=== PATIENT | female | born 1985 | race Caucasian/White ===

== ENCOUNTER → 2017-10-06 | Outpatient (CLI) | payer BC ==
--- NOTE | 2017-10-06 16:52 | RADIOLOGY REPORT (SQ) ---
EXAM DESCRIPTION: CT SINUSES FOR ENT COMPLETED DATE/TIME: 10/06/2017 3:20 pm REASON FOR STUDY: J01.81OTHER ACUTE RECURRENT SINUSITIS J01.81 OTHER ACUTE RECURRENT SINUSITIS COMPARISON: None. TECHNIQUE: Noncontrast scanning through the paranasal sinuses using bone algorithm. Reconstructed MPR images reviewed. All images stored on PACS. Images acquired for image guided surgery. All CT scanners at this facility use dose modulation, iterative reconstruction, and/or weight based d osing when appropriate to reduce radiation dose to as low as reasonably achievable (ALARA). [facility]: Dose Right [facility]: CareDose [facility]: Dose Right [facility]: Teradose 4D [facility]: Smart REPP RADIATION DOSE: mGy. FINDINGS: NASAL PASSAGES: Clear. No polyps or masses. OSTEOMEATAL UNITS AND NASOFRONTAL DUCTS: Patent. No agger nasi or Nisha cells. MAXILLARY SINUSES: Mucous membrane thickening in the floor of the right maxillary sinus. No fluid. Left maxillary sinus clear. Maxillary sinus outlets are patent. ETHMOID SINUSES: Well-pneumatized and clear. SPHENOID SINUSES: Well-pneumatized and clear. No sphenoethmoid air cells or pneumatized pterygoid rec ess. No pneumatized dorsal sella. FRONTAL SINUSES: Well-pneumatized and clear. MASTOID AIR CELLS: Clear. ORBITS: Normal and symmetrical. NASAL SEPTUM: Deviated to the right. Small right side nasal septal spur. TEMPOROMANDIBULAR JOINTS: Normal. TURBINATES: Bilateral miah bullosa in the middle turbinates with a large pneumatized air cell in t he left middle turbinate. MUCOPERIOSTEAL THICKENING: No. MUCOCELE: No. OTHER: No other significant findings. IMPRESSION: 1. MUCOUS MEMBRANE THICKENING IN THE RIGHT MAXILLARY SINUS. NO FLUID. PATENT OSTIOMEATAL UNIT. REM AINDER OF THE PARANASAL SINUSES ARE CLEAR. 2. MILD DEVIATION OF THE NASAL SEPTUM TO THE RIGHT WITH A SMALL RIGHT-SIDED NASAL SEPTAL SPUR. 3. MIAH BULLOSA IN THE MIDDLE TURBINATES, LEFT GREATER THAN RIGHT. TECHNICAL DOCUMENTATION: JOB ID: [id number] Quality ID # [id number]: Final reports with documentation of one or more dose reduction techniques (e.g., Au tomated exposure control, adjustment of the mA and/or kV according to patient size, use of iterative reconstruction technique) 2010 [employer]- All Rights Reserved Reading location - IP/workstation name: [email or web address]
== END ==
LOC: RAD 15:41
PROVIDERS: ATTEND Otolaryngology
DX: J01.81 Other acute recurrent sinusitis (principal); J34.2 Deviated nasal septum
CPT/HCPCS: 70486

== ENCOUNTER 2017-11-07 06:38 | Day surgery (SDC) | payer BC ==
[~2017-11-07 06:38] MED LIST: LACTATED RINGERS 1000 ML IV PRN; LIDOCAINE 0.5% INJ-PF (5 MG/ML) 50 ML SDV SUBCUT PRN
[2017-11-07] MEDS ORDERED: OXYMETAZOLINE HCL 0.05% NASAL SPRAY 15 ML BOTTLE ONE (06:46)
[2017-11-07] MEDS ORDERED: BUPIVACAINE HCL 0.5%/EPI 1:200000 INJ 1.8 ML CARTRIDGE ONE (06:46)
[2017-11-07] MEDS ORDERED: MINERAL OIL (STERILE) 10 ML VIAL ONE (06:46)
[2017-11-07] MEDS ORDERED: BUPIVACAINE HCL 0.5%-EPI 1:200000 INJ/PF 30 ML VIAL ONE (06:46)
[2017-11-07] MEDS ORDERED: METOCLOPRAMIDE HCL INJ/PF 10 MG/2 ML SDV ONE (06:52)
[2017-11-07] MEDS ORDERED: FENTANYL CITRATE INJ/PF 100 MCG/2 ML AMPUL ONE ×4 (06:52→12:26)
[2017-11-07] MEDS ORDERED: MIDAZOLAM 2 MG/2 ML INJ ONE (06:52)
[2017-11-07] MEDS ORDERED: DEXMEDETOMIDINE INJ 80 MCG/20 ML VIAL IV ONE (06:53)
[2017-11-07] MEDS ORDERED: DEXAMETHASONE SOD PHOS INJ 10 MG/1 ML VIAL ONE (06:53)
[2017-11-07] MEDS ORDERED: PROPOFOL INJ 200 MG/20 ML VIAL IV ONE (06:53)
[2017-11-07] MEDS ORDERED: LIDOCAINE 2% INJ-PF (20 MG/ML) 10 ML AMPUL ONE (06:53)
[2017-11-07] MEDS ORDERED: GLYCOPYRROLATE INJ 0.4 MG/2 ML VIAL ONE (06:54)
[2017-11-07] MEDS ORDERED: SUCCINYLCHOLINE CHLORIDE INJ 200 MG/10 ML VIAL ONE (06:54)
[2017-11-07] MEDS ORDERED: FAMOTIDINE INJ/PF 20 MG/2 ML SDV IV ONE (06:54)
[2017-11-07] MEDS ORDERED: PROMETHAZINE HCL INJ 25 MG/1 ML VIAL ONE (06:54)
[2017-11-07] MEDS ORDERED: CEFAZOLIN 2 GM/D5W RTU 2 GM/50 ML RTUPB IV ONE (07:06)
[2017-11-07] MEDS ORDERED: ONDANSETRON HCL INJ/PF 4 MG/2 ML SDV ONE (07:24)
[2017-11-07] MEDS ORDERED: SCOPOLAMINE HYDROBROMIDE 1.5 MG PATCH.TD72 TD PRN (07:39)
[2017-11-07] MEDS ORDERED: TOBRAMYCIN SULFATE/DEXAMETH OPH OINTMENT 3.5 GM ONE (07:43)
[2017-11-07] MEDS ORDERED: BALANCED SALT IRRIG SOLN COMB2 15 ML BOTTLE ONE (07:43)
[2017-11-07] MEDS ORDERED: OXYCODONE-ACETAMINOPHEN 5-325 MG TABLET ONE (15:19)
--- NOTE | 2017-11-08 21:55 | SURGICARE OPERATIVE REPORT E ---
[facility] Operative Report NAME: DILEEP LEYVA AGE: 32Y DATE OF SURGERY: 11/07/2017 ROOM: PREOPERATIVE DIAGNOSES: 1. ACUTE RECURRENT SINUSITIS. 2. NASAL SEPTAL DEVIATION, ACQUIRED. 3. NASAL DEFORMITIES, ACQUIRED. 4. BILATERAL INFERIOR TURBINATE HYPERTROPHY. 5. BILATERAL ZANE BULLOSA. 6. CHRONIC NASAL DYSPNEA. 7. HISTORY OF NASAL TRAUMA. POSTOPERATIVE DIAGNOSES: 1. ACUTE RECURRENT SINUSITIS. 2. NASAL SEPTAL DEVIATION, ACQUIRED. 3. NASAL DEFORMITIES, ACQUIRED. 4. BILATERAL INFERIOR TURBINATE HYPERTROPHY. 5. BILATERAL ZANE BULLOSA. 6. CHRONIC NASAL DYSPNEA. 7. HISTORY OF NASAL TRAUMA. OPERATION PERFORMED: 1. Functional endoscopic sinus surgery with bilateral maxillary antrostomies, bilateral rigid transnasal surgical endoscopies. 2. Open/external septorhinoplasty addressing the bony nasal pyramid and the upper and lower cartilages with cartilage grafting. 3. Bilateral zane bullosa reductions. 4. Bilateral inferior turbinate reductions using a submucous resection technique. SURGEON: WESTLEY VALVERDE D.O. ANESTHETIC: General endotracheal tube. ANESTHESIA STAFF: Brenda Yeboah CRNA ESTIMATED BLOOD LOSS: 100 mL. IV FLUIDS: 2200 mL. URINE OUTPUT: 750 mL. COMPLICATIONS: None. DRAINS: None. SPONGE COUNT: Verified. MATERIALS FORWARDED SPECIMEN: None. FINDINGS: 1. Right nasal septal deviation involving bone and cartilage along with a maxillary crest spur/septal spur. 2. Significant dorsal nasal hump involving bone and cartilage along with dorsal deformities. 3. Cephalically sweeping lower lateral cartilages which were also weak in their overall integrity. 4. Zane bullosa, left greater than right. 5. There were no sinonasal polyps or polypoid mucosal changes or sinus discharge noted. INDICATIONS: This is a 32-year-old white female who was seen and evaluated t the [place] otolaryngology office. The patient had been referred for and she complained of a history of acute recurrent sinusitis infections occurring each year, requiring antibiotics which has gone on over the years. The patient also complained of a history of repeated nasal trauma beginning in early youth with resulting nasal deformities and chronic nasal dyspnea. The patient notes that her nasal airflow/dysfunction has progressively become more difficult over the years. The patient underwent CT sinus imaging and clinic nasal endoscopic evaluation. After extensive discussion with the patient, recommendation and plan was made to proceed with functional endoscopic sinus surgery, open/external septorhinoplasty, zane bullosa reductions, and bilateral inferior turbinate reductions. The procedures and all of their risks and complications were all discussed in detail with the patient. She voiced an understanding of the described surgical plan, agreed to proceed, and consent was obtained. PROCEDURE: The patient was taken to the main operating room and placed on the operating room table in the supine position. Appropriate monitors were placed. Using mask and IV access, general anesthesia was induced. The patient was next transorally intubated without difficulty. The patient underwent a nasal examination with injection of local anesthetic with epinephrine to establish a nasal block. At this point, the patient had 2 Afrin-soaked neuro patties placed per side. The patient was then prepped and draped in the usual fashion for nasal surgery. The Afrin-soaked neuro patties were removed and the patient underwent a hemitransfixion incision with elevation of the mucoperichondrial and mucoperiosteal flaps. The bony cartilaginous junction was identified and divided with the most deviated portions of septal bone and cartilage removed. There was a greater than 1.5 x 1.5 cm cartilaginous L-strut that was preserved. At this point, the turbinate bipolar wand was used to make 2 passes in each inferior turbinate followed by use of the [place] elevator to outfracture each inferior turbinate. The anterior portion was entered with a pair of Zbigniew scissors followed by elevation of the mucosa in a submucosal plane using a [place] elevator. Next, the turbinate microdebrider system at a setting of 1500 rpm was used to perform submucous resection on each side. The redundant/excessive mucosa was trimmed and the tissue margins were reapproximated with Chromic suture. At this point, the functional endoscopic sinus surgery was addressed with use of bilateral transnasal rigid surgical endoscopy. With use of sinus instrumentation and the microdebrider system at a setting of 3000 rpm, the zane bullosa were reduced, left greater than right. At this point, the maxillary antrostomies were performed without difficulty. Findings are as noted above. Prior to addressing the zane bullosa and performing maxillary antrostomies, there was injection of local anesthetic with epinephrine in the area of the middle turbinates and lateral nasal wall. At this point, the rhinoplasty portion of the case was addressed in the following manner. There was an inverted V incision performed followed by bilateral marginal incisions with elevation of the skin soft tissue envelope in a subperichondrial/subperiosteal plane. Once complete, a Martinez osteotome and an 11 blade scalpel were used to remove the bony cartilaginous and dorsal irregularities. At this point, dorsal rasp work was performed. The upper lateral cartilages had been previously released from the nasal septum. Excess caudal septal margin cartilage was also trimmed, removing approximately 2 mm. A rongeur was used to remove excessive bony fullness at the right nasal vestibule adjacent the anterior nasal spine. The lateral aspect of the lower lateral cartilages were dissected free from the surrounding tissue and then fashioned with extended alar simón graft and these were next repositioned in precise pockets in a more caudal fashion, as they were previously cephalically sweeping. Next, a right rn bone marrow transplant graft was placed and secured in position with 6-0 Prolene suture. The upper lateral cartilages were next repositioned with 6-0 Prolene suture, securing them in the midline. At this point, morselized cartilage was placed over the nasal dorsum. The dome regions were reapproximated with 6-0 Prolene suture. The medial crura were secured to the caudal septal margin with 5-0 Prolene suture. The skin soft tissue envelope was next returned. A right lateral osteotomy was also performed after a subperiosteal tunnel was created. The right lateral nasal sidewall was positioned into the midline. The inverted V incision was next reapproximated with chromic suture followed by skin margin reapproximation with 6-0 Prolene suture. At this point, the lower lateral cartilages with grafts were stabilized with [id number] 5-0 Prolene suture with Telfa cotton bolsters overlying the internal and external nasal tissue. Once complete, all remaining incisions were reapproximated with chromic suture. The nose was then thoroughly irrigated and suctioned with adequate hemostasis being noted. Next, 1 Merocel nasal pack was placed per side and these were secured at the caudal aspect with 4-0 Prolene suture. At this point, the patient's nose was cleaned and dried, followed by placement of Mastisol, Steri-Strips, and an aluminum pressure splint. At this point, the patient was returned to the anesthesia staff and was allowed to emerge from general anesthesia. The patient was extubated in the main operating room and was then transported to the post anesthesia recovery unit in stable condition. There were no complications. DICTATING PHYSICIAN: WESTLEY VALVERDE D.O. [id number] PHY#: [id number] ID: [id number] JOB#: [id number] ACCT: [id number] cc:WESTLEY VALVERDE D.O. >
== END 2017-11-07 16:24 | disposition home or self-care (01) ==
LOC: SC 06:38
PROVIDERS: ATTEND Otolaryngology
DX: J34.2 Deviated nasal septum (principal); J34.3 Hypertrophy of nasal turbinates; J34.89 Other specified disorders of nose and nasal sinuses; G89.29 Other chronic pain; R06.09 Other forms of dyspnea; J30.9 Allergic rhinitis, unspecified; H69.83 Other specified disorders of Eustachian tube, bilateral; J01.81 Other acute recurrent sinusitis; M95.0 Acquired deformity of nose; E07.9 Disorder of thyroid, unspecified; Z88.2 Allergy status to sulfonamides; Z79.899 Other long term (current) drug therapy; Z87.891 Personal history of nicotine dependence
CPT/HCPCS: 30420; 30140; 31240; 31256; J2250; J3490 ×7; J3010; J2765; J2550; J0330; J2405; J2704; S0028; J1100; J0690; 160

== ENCOUNTER 2017-12-18 23:49 | Emergency (ER) | payer BC ==
--- NOTE | 2017-12-19 00:44 | ER Document Report ---
ED Medical Screen (RME) - General Chief Complaint: Chest Congestion Stated Complaint: CONGESTION Time Seen by Provider: 12/19/17 00:40 Mode of Arrival: Ambulatory Information source: Patient Notes: 32-year-old female presents to ED for complaint of cough congestion shortness of breath. She states she went to the clinic yesterday they gave her albuterol told to get Mucinex. They told her she had any fever she needs to be taken it seriously. She states tonight she was shaking so hard that she had to get up get a blanket. She states her friend came over to check her out and her heart rate was 118 and she has never that high. States she also has a history of kidney stones and she has had flank pain and frequent urination. She states she just had sinus surgery 6 weeks ago. And she had a knee surgery in the distant past for dislocated knee and it is still dislocates easily. 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 She smokes half pack a day and drinks socially. Patient is alert and oriented respirations regular unlabored speaks in full sentences walks with a even steady gait. I have greeted and performed a rapid initial assessment of this patient. A comprehensive ED assessment and evaluation of the patient, analysis of test results and completion of medical decision making process will be conducted by an additional ED providers. TRAVEL OUTSIDE OF THE [place] IN LAST 30 DAYS: No - Related Data Allergies/Adverse Reactions: Sulfa (Sulfonamide Antibiotics) Allergy (Verified 11/06/17 09:27) Past Medical History - Past Medical History Cardiac Medical History: Denies: Hx Heart Attack, Hx Hypertension Pulmonary Medical History: Denies: Hx Asthma Neurological Medical History: Denies: Hx Cerebrovascular Accident, Hx Seizures GI Medical History: Reports: Hx Gastroesophageal Reflux Disease, Hx Hiatal Hernia. Denies: Hx Hepatitis, Hx Ulcer Infectious Medical History: Denies: Hx Hepatitis Past Surgical History: Denies: Hx Mastectomy, Hx Open Heart Surgery, Hx Pacemaker - Immunizations Hx Diphtheria, Pertussis, Tetanus Vaccination: Yes Doctor's Discharge - Discharge Referrals: LOCALMD,NO [Primary Care Provider] - Follow up as needed
[2017-12-19 01:25] LABS: APPEARANCE,URINE CLEAR; BILIRUBIN,URINE NEGATIVE (NEGATIVE); COLOR,URINE YELLOW; GLUCOSE, URINE NEGATIVE (NEGATIVE); KETONES,URINE NEGATIVE (NEGATIVE); LEUKOCYTE ESTERASE,URINE NEGATIVE (NEGATIVE); NITRITE,URINE NEGATIVE (NEGATIVE); PROTEIN,URINE NEGATIVE (NEGATIVE); URINE SPECIFIC GRAVITY 1.019; UROBILINOGEN,URINE NEGATIVE mg/dL (<2.0)
== END 2017-12-19 01:05 | disposition left against medical advice (07) ==
LOC: ER 23:49
DX: R09.89 Other specified symptoms and signs involving the circulatory and respiratory systems (principal); R06.02 Shortness of breath; R35.0 Frequency of micturition; Z88.2 Allergy status to sulfonamides; Z87.442 Personal history of urinary calculi
CPT/HCPCS: 81001; 81025; 99281

== ENCOUNTER 2018-01-21 11:14 | Emergency (ER) | payer BC ==
[2018-01-21] MEDS ORDERED: FAMOTIDINE INJ/PF 20 MG/2 ML SDV IV ONE (11:44)
--- NOTE | 2018-01-21 11:44 | ER Document Report ---
ED Medical Screen (RME) - General Chief Complaint: Black/Tarry Stools Stated Complaint: ABDOMINAL PAIN, BLOOD IN STOOL Time Seen by Provider: 01/21/18 11:38 Mode of Arrival: Ambulatory Information source: Patient Notes: This is a 32-year-old female with a history of hiatal hernia, chronic left knee pain (takes NSAIDs often) who is been under a lot of stress lately and now presents with stomach cramping and black stool. Patient does report drinking 2 large glasses of wine last night. She said she had symptoms of reflux during the night and had black stool this morning. TRAVEL OUTSIDE OF THE [place] IN LAST 30 DAYS: No - Related Data Allergies/Adverse Reactions: Sulfa (Sulfonamide Antibiotics) Allergy (Verified 01/21/18 11:15) Past Medical History - Social History Frequency of alcohol use: Occasional - Past Medical History Cardiac Medical History: Denies: Hx Heart Attack, Hx Hypertension Pulmonary Medical History: Denies: Hx Asthma Neurological Medical History: Denies: Hx Cerebrovascular Accident, Hx Seizures Renal/ Medical History: Denies: Hx Peritoneal Dialysis GI Medical History: Reports: Hx Gastroesophageal Reflux Disease, Hx Hiatal Hernia. Denies: Hx Hepatitis, Hx Ulcer Infectious Medical History: Denies: Hx Hepatitis Past Surgical History: Reports: Hx Nose Surgery, Hx Orthopedic Surgery - Lt knee. Denies: Hx Mastectomy, Hx Open Heart Surgery, Hx Pacemaker - Immunizations Hx Diphtheria, Pertussis, Tetanus Vaccination: Yes Physical Exam - Vital signs Vitals: Temp Pulse Resp BP Pulse Ox 97.7 F 82 16 96/70 L 100 01/21/18 11:18 01/21/18 11:18 01/21/18 11:18 01/21/18 11:18 01/21/18 11:18 Course - Vital Signs Vital signs: Temp Pulse Resp BP Pulse Ox 97.7 F 82 16 96/70 L 100 01/21/18 11:18 01/21/18 11:18 01/21/18 11:18 01/21/18 11:18 01/21/18 11:18
[2018-01-21 12:13] LABS: ABSOLUTE EOSINOPHILS # (AUTO) 0.2 10^3/uL (0.0-0.6); ABSOLUTE LYMPHOCYTES (AUTO) 1.4 10^3/uL (0.5-4.7); ABSOLUTE MONOCYTES (AUTO) 0.4 10^3/uL (0.1-1.4); BASOPHILS % (AUTO) 0.4 % (0-2); EOSINOPHILS % (AUTO) 2.4 % (0-6); HEMATOCRIT 39.3 % (36.0-47.0); HEMOGLOBIN 13.9 g/dL (12.0-15.5); LYMPHOCYTES % (AUTO) 13.5 % (13-45); MEAN CORPUSCULAR HGB CONC 35.4 g/dL (32.0-36.0); MEAN CORPUSCULAR VOLUME 90 fl (80-97); MONOCYTES % (AUTO) 4.2 % (3-13); PLATELET COUNT 297 10^3/uL (150-450); RED BLOOD COUNT 4.35 10^6/uL (3.72-5.28); RED CELL DISTRIBUTION WIDTH 12.9 % (11.5-14.0); SEGMENTED NEUTROPHILS % (AUTO) 79.5 % (42-78); TOTAL CELLS COUNTED % (AUTO) 100 %; WHITE BLOOD COUNT 10.1 10^3/uL (4.0-10.5)
[2018-01-21 12:35] LABS: ALANINE AMINOTRANSFERASE 28 U/L (9-52); ALBUMIN 4.5 g/dL (3.5-5.0); ALKALINE PHOSPHATASE 57 U/L (38-126); ANION GAP 10 (5-19); ASPARTATE AMINO TRANSFERASE 23 U/L (14-36); BILIRUBIN,DIRECT 0.2 mg/dL (0.0-0.4); BILIRUBIN,TOTAL 0.4 mg/dL (0.2-1.3); BLOOD UREA NITROGEN 13 mg/dL (7-20); CALCIUM 9.9 mg/dL (8.4-10.2); CARBON DIOXIDE 25 mmol/L (22-30); CHLORIDE 105 mmol/L (98-107); GLUCOSE 94 mg/dL (75-110); LIPASE 106.8 U/L (23-300); POTASSIUM 4.4 mmol/L (3.6-5.0); SODIUM 139.5 mmol/L (137-145); TOTAL PROTEIN 7.2 g/dL (6.3-8.2)
--- NOTE | 2018-01-21 12:49 | ER Document Report ---
ED General - General Chief Complaint: Black/Tarry Stools Stated Complaint: ABDOMINAL PAIN, BLOOD IN STOOL Time Seen by Provider: 01/21/18 11:38 Mode of Arrival: Ambulatory TRAVEL OUTSIDE OF THE [place] IN LAST 30 DAYS: No - HPI Notes: Patient is a 32-year-old female with a history of hiatal hernia, GERD, tobacco abuse who presents to the ED complaining of dark tarry stool this morning. Patient states that she was drinking wine last night on an empty stomach and had an exacerbation of her acid reflux. Patient states that she also started her period recently. Patient states that she did have one episode of nausea and vomiting yesterday, but no nausea or vomiting today. She had an episode of dark colored stool this morning. Her last endoscopy/colonoscopy was 7 years ago. She has no other concerns or complaints at this time. Pain is described as a cramping pain. Pain does not radiate. Her pain is described to be in the epigastrium and states that she has typical menstrual cramping. Denies any headache, fever, URI, sore throat, chest pain, palpitations, syncope, cough, shortness of breath, wheeze, dyspnea, current nausea/vomiting/diarrhea, urinary retention, dysuria, hematuria, back pain, loss of control of bowel or bladder, numbness/tingling, muscle paralysis/weakness, or rash. - Related Data Allergies/Adverse Reactions: Sulfa (Sulfonamide Antibiotics) Allergy (Verified 01/21/18 11:15) Past Medical History - General Information source: Patient - Social History Smoking Status: Current Every Day Smoker Frequency of alcohol use: Occasional Family History: Reviewed & Not Pertinent Patient has suicidal ideation: No Patient has homicidal ideation: No - Past Medical History Cardiac Medical History: Denies: Hx Heart Attack, Hx Hypertension Pulmonary Medical History: Denies: Hx Asthma Neurological Medical History: Denies: Hx Cerebrovascular Accident, Hx Seizures Renal/ Medical History: Denies: Hx Peritoneal Dialysis GI Medical History: Reports: Hx Gastroesophageal Reflux Disease, Hx Hiatal Hernia. Denies: Hx Hepatitis, Hx Ulcer Infectious Medical History: Denies: Hx Hepatitis Past Surgical History: Reports: Hx Nose Surgery, Hx Orthopedic Surgery - Lt knee. Denies: Hx Mastectomy, Hx Open Heart Surgery, Hx Pacemaker - Immunizations Hx Diphtheria, Pertussis, Tetanus Vaccination: Yes Review of Systems - Review of Systems -: Yes All other systems reviewed and negative Physical Exam - Vital signs Vitals: Temp Pulse Resp BP Pulse Ox 97.7 F 82 16 96/70 L 100 01/21/18 11:18 01/21/18 11:18 01/21/18 11:18 01/21/18 11:18 01/21/18 11:18 - Notes Notes: PHYSICAL EXAMINATION: GENERAL: Well-appearing, well-nourished and in no acute distress. HEAD: Atraumatic, normocephalic. EYES: Pupils equal round and reactive to light, extraocular movements intact, sclera anicteric, conjunctiva are normal. ENT: Nares patent and without discharge. oropharynx clear without exudates. No tonsilar hypertrophy or erythema. Moist mucous membranes. NECK: Normal range of motion, supple without lymphadenopathy LUNGS: Breath sounds clear to auscultation bilaterally and equal. No wheezes rales or rhonchi. HEART: Regular rate and rhythm without murmurs, rubs, gallops. ABDOMEN: Soft, nondistended abdomen. No guarding, no rebound. No masses appreciated. Normal bowel sounds present. No CVA tenderness bilaterally. + mild epigastric pain. Rectal: Pt declined and would like to supply a stool sample instead. Musculoskeletal: FROM to passive/active. Strength 5+/5. Extremities: No cyanosis, clubbing, or edema b/l. Peripheral pulses 2+. Capillary refill less than 3 seconds. NEUROLOGICAL: Normal speech, normal gait. PSYCH: Normal mood, normal affect. SKIN: Warm, Dry, normal turgor, no rashes or lesions noted. Exam: [id number]: Pt could not deliver BM so rectal was performed. + melanotic stool noted. Sent for testing. Witnessed exam by Marlee Dao. Course - Re-evaluation Re-evalutation: 01/21/18 15:[address] Fung who recommends outpatient f/u in his office this week. 01/21/18 15:30 Patient is an afebrile, well-hydrated, 32-year-old female who presents to the ED with melanotic stools suggestive of upper GI bleed without any active abundant bleeding currently. Vitals are acceptable without any significant tachycardia, tachypnea, or hypoxia. PE is otherwise unremarkable. Patient's abdomen has improved and is currently soft and nontender at this time. She has had no hematemesis or hematochezia. Patient is nontoxic-appearing and is tolerating p.o. without any difficulties. CBC does not show any anemia. CMP unremarkable including BUN. Urinalysis, lipase, hCG, CXR unremarkable. No further labs or imaging warranted at this time based on H&P. Low suspicion/ risk for acute appendicitis, bowel obstruction, acute cholecystitis, acute cholangitis, perforated diverticulitis, incarcerated hernia, pancreatitis, perforated ulcer, peritonitis, sepsis, pelvic inflammatory disease, ectopic , tubo-ovarian abscess, ovarian torsion, or other systemic emergent condition at this time. Patient is aware that her condition can change from initial presentation and she needs to monitor symptoms closely and seek medical attention if any acute changes. Patient did receive Pepcid IV today. I will be sending her home with a prescription for omeprazole and Carafate. Conservative measures for symptoms. Recheck with the contact center representative this week, call tomorrow morning to schedule an appointment. Return to the ED with any worsening/concerning symptoms otherwise as reviewed in discharge. Patient is in agreement. - Vital Signs Vital signs: Temp Pulse Resp BP Pulse Ox 98.2 F 89 14 118/74 98 01/21/18 15:28 01/21/18 15:28 01/21/18 15:28 01/21/18 15:28 01/21/18 15:28 - Laboratory Result Diagrams: 01/21/18 11:49 01/21/18 11:49 Laboratory results interpreted by me: 01/21/18 01/21/18 11:49 12:53 Seg Neutrophils % 79.5 H Urine Protein 30 H Urine Ketones TRACE H Urine Blood LARGE H Urine Urobilinogen 2.0 H Discharge - Discharge Clinical Impression: UGI bleed Condition: Stable Disposition: HOME, SELF-CARE Additional Instructions: Maintain adequate fluid and food intake Avoid alcohol and acidic foods Zofran as needed tylenol if needed Monitor for any worsening symptoms Make sure you are staying hydrated enough to urinate and have normal BM's Recheck with your PCM in 3-5 days Call the GI office tomorrow morning to schedule an appointment for this week Return to the ED with any worsening symptoms and/or development of fever, headache, chest pain, palpitations, syncope, shortness of breath, trouble breathing, abdominal pain, n/v/d, blood in stool/urine, weakness, or other worsening symptoms that are concerning to you. You must return immediately if any vomiting of blood or worsening bleeding in your stool. Prescriptions: Omeprazole 20 mg PO DAILY #30 tablet. Ondansetron [Zofran Odt 4 mg Tablet] 1 - 2 tab PO Q4H PRN #15 tab.rapdis PRN Reason: For Nausea/Vomiting Sucralfate [Carafate] 1 gm PO QID PRN #420 ml PRN Reason: Referrals: NIYAH FUNG MD [ACTIVE STAFF] - 01/23/18
[2018-01-21 13:25] LABS: APPEARANCE,URINE SLIGHTLY-CLOUDY; BILIRUBIN,URINE NEGATIVE (NEGATIVE); COLOR,URINE YELLOW; GLUCOSE, URINE NEGATIVE (NEGATIVE); KETONES,URINE TRACE mg/dL (NEGATIVE); LEUKOCYTE ESTERASE,URINE NEGATIVE (NEGATIVE); NITRITE,URINE NEGATIVE (NEGATIVE); PROTEIN,URINE 30 mg/dL (NEGATIVE); URINE SPECIFIC GRAVITY 1.027
--- NOTE | 2018-01-21 14:10 | RADIOLOGY REPORT (SQ) ---
EXAM DESCRIPTION: CHEST SINGLE VIEW COMPLETED DATE/TIME: 01/21/2018 1:49 pm REASON FOR STUDY: epigastric pain COMPARISON: 2012. NUMBER OF VIEWS: One view. TECHNIQUE: Single frontal radiographic view of the chest acquired. LIMITATIONS: None. FINDINGS: LUNGS AND PLEURA: No opacities, masses or pneumothorax. No pleural effusion. MEDIASTINUM AND HILAR STRUCTURES: No masses. Contour normal. HEART AND VASCULAR STRUCTURES: Heart normal in size. Normal vasculature. BONES: No acute findings. HARDWARE: None in the chest. OTHER: No other significant finding. IMPRESSION: NO SIGNIFICANT RADIOGRAPHIC FINDING IN THE CHEST. TECHNICAL DOCUMENTATION: JOB ID: [id number] [employer]- All Rights Reserved Reading location - IP/workstation name: [email or web address]
[2018-01-21 15:31] VITALS: BP 118/74
== END 2018-01-21 15:38 | disposition home or self-care (01) ==
LOC: ER 11:14
DX: K92.2 Gastrointestinal hemorrhage, unspecified (principal); R10.13 Epigastric pain; F17.200 Nicotine dependence, unspecified, uncomplicated; Z87.19 Personal history of other diseases of the digestive system; Z88.2 Allergy status to sulfonamides
CPT/HCPCS: 99284; 96374; 36415; 87086; 84702; 83690; 85025; 82272; 80053; 81001; 71045; S0028

== ENCOUNTER → 2019-08-01 | Outpatient (CLI) | payer BC ==
--- NOTE | 2019-08-01 09:41 | WOMENS IMAGING REPORT ---
EXAM DESCRIPTION: 3D DX MAMMO BILAT; U/S BREAST UNILAT LIMITED IMAGES COMPLETED DATE/TIME: 08/01/2019 8:54 am; 08/01/2019 9:22 am REASON FOR STUDY: N64.53 RETRACTION OF NIPPLE; RT BREAST N64.53 N64.53 RETRACTION OF NIPPLE COMPARISON: 07/03/2019. EXAM PARAMETERS: Standard craniocaudal and mediolateral oblique views of each breast recorded using digital acquisition and breast tomosynthesis. Additional true lateral and spot compression lateral and CC images of the right breast acquired. Read with the assistance of CAD: .[employer] - [employer] Bingo Clerk Version 9.2 LIMITATIONS: None. FINDINGS: RIGHT BREAST MASSES: No suspicious masses. CALCIFICATIONS: No new or suspicious calcifications. ARCHITECTURAL DISTORTION: None. ASYMMETRY: None noted. OTHER: No other significant findings. LEFT BREAST MASSES: No suspicious masses. CALCIFICATIONS: No new or suspicious calcifications. ARCHITECTURAL DISTORTION: None. ASYMMETRY: None noted. OTHER: No other significant finding. BREAST ULTRASOUND: TECHNIQUE: Static and dynamic grayscale images acquired of the right breast in the specific areas of clinical/mammographic concern, 1-2 o'clock location. Selected color Doppler images recorded. ELASTOGRAPHY PERFORMED: No. LIMITATIONS: None. FINDINGS: MASS: No mass identified. Normal glandular tissue. ELASTOGRAPHY CHARACTERISTICS: Not applicable. OTHER: No other significant finding. IMPRESSION: Unremarkable bilateral mammogram. No worrisome mammographic or sonographic findings in the right breast in the area of interest. BREAST DENSITY: c. The breasts are heterogeneously dense, which may obscure small masses. BIRAD: ASSESSMENT: 1 Negative. RECOMMENDATION: RECOMMENDED FOLLOW UP: Birads 1 or 2: No breast imaging finding to explain the patie nt's presenting complaint. Further intervention should be based on the degree of clinical suspicion. SPECIFIC INTERVENTION/IMAGING/CONSULTATION RECOMMENDED:No additional intervention/ imaging/consultati on needed at this time. COMMUNICATION:The imaging findings were not discussed with the patient. Her referring provider has be en notified of the findings. COMMENT: The patient has been notified of the results by letter per MQSA requirements. Additional no tification policies are in place for contacting patient with suspicious or incomplete findings. Quality ID #225: The [employer] recommends an annual screening mammogram for women aged 40 years or over. This facility utilizes a reminder system to ensure that all patients receive reminder letters, and/or direct phone calls for appointments. This includes reminders for routine scr eening mammograms, diagnostic mammograms, or other Breast Imaging Interventions when appropriate. Th is patient will be placed in the appropriate reminder system. TECHNICAL DOCUMENTATION: FINDING NUMBER: (1) ASSESSMENT: (1) JOB ID: [id number] 2010 [employer]- All Rights Reserved Reading location - IP/workstation name: [facility]
--- NOTE | 2019-08-01 09:41 | WOMENS IMAGING REPORT ---
EXAM DESCRIPTION: 3D DX MAMMO BILAT; U/S BREAST UNILAT LIMITED IMAGES COMPLETED DATE/TIME: 08/01/2019 8:54 am; 08/01/2019 9:22 am REASON FOR STUDY: N64.53 RETRACTION OF NIPPLE; RT BREAST N64.53 N64.53 RETRACTION OF NIPPLE COMPARISON: 07/03/2019. EXAM PARAMETERS: Standard craniocaudal and mediolateral oblique views of each breast recorded using digital acquisition and breast tomosynthesis. Additional true lateral and spot compression lateral and CC images of the right breast acquired. Read with the assistance of CAD: .[employer] - [employer] Expander Version 9.2 LIMITATIONS: None. FINDINGS: RIGHT BREAST MASSES: No suspicious masses. CALCIFICATIONS: No new or suspicious calcifications. ARCHITECTURAL DISTORTION: None. ASYMMETRY: None noted. OTHER: No other significant findings. LEFT BREAST MASSES: No suspicious masses. CALCIFICATIONS: No new or suspicious calcifications. ARCHITECTURAL DISTORTION: None. ASYMMETRY: None noted. OTHER: No other significant finding. BREAST ULTRASOUND: TECHNIQUE: Static and dynamic grayscale images acquired of the right breast in the specific areas of clinical/mammographic concern, 1-2 o'clock location. Selected color Doppler images recorded. ELASTOGRAPHY PERFORMED: No. LIMITATIONS: None. FINDINGS: MASS: No mass identified. Normal glandular tissue. ELASTOGRAPHY CHARACTERISTICS: Not applicable. OTHER: No other significant finding. IMPRESSION: Unremarkable bilateral mammogram. No worrisome mammographic or sonographic findings in the right breast in the area of interest. BREAST DENSITY: c. The breasts are heterogeneously dense, which may obscure small masses. BIRAD: ASSESSMENT: 1 Negative. RECOMMENDATION: RECOMMENDED FOLLOW UP: Birads 1 or 2: No breast imaging finding to explain the patie nt's presenting complaint. Further intervention should be based on the degree of clinical suspicion. SPECIFIC INTERVENTION/IMAGING/CONSULTATION RECOMMENDED:No additional intervention/ imaging/consultati on needed at this time. COMMUNICATION:The imaging findings were not discussed with the patient. Her referring provider has be en notified of the findings. COMMENT: The patient has been notified of the results by letter per MQSA requirements. Additional no tification policies are in place for contacting patient with suspicious or incomplete findings. Quality ID #225: The [employer] recommends an annual screening mammogram for women aged 40 years or over. This facility utilizes a reminder system to ensure that all patients receive reminder letters, and/or direct phone calls for appointments. This includes reminders for routine scr eening mammograms, diagnostic mammograms, or other Breast Imaging Interventions when appropriate. Th is patient will be placed in the appropriate reminder system. TECHNICAL DOCUMENTATION: FINDING NUMBER: (1) ASSESSMENT: (1) JOB ID: [id number] 2010 [employer] All Rights Reserved Reading location - IP/workstation name: [facility]
== END ==
LOC: WI 08:21
PROVIDERS: ATTEND Advanced Practice Midwife
DX: N64.53 Retraction of nipple (principal)
CPT/HCPCS: 76642; 77066; G0279; 77062